=== PATIENT | male | born 1965 | race African-American/Black ===

== ENCOUNTER 2022-11-10 13:33 | Emergency (ER) | payer OTHER ==
[~2022-11-10] VITALS: Ht 182.9 cm; Wt 105.0 kg
[2022-11-10] MEDS ORDERED: BACITRACIN ZINC OINT UDPKT TOP ONE ×2 (14:15→17:15)
[2022-11-10] MEDS ORDERED: LIDOCAINE HCL/PF 1% 10 MG/ML 5ML VIAL INFIL ONE (14:15)
[2022-11-10] MEDS ORDERED: TETANUS, DIPHTHERIA, PERTUSSIS VAC/PF 0.5ML (>10YR OLD) IM ONE (14:15)
[2022-11-10 14:31] VITALS: O2SAT 100
[2022-11-10] MEDS ORDERED: MUPI1OIN4 TP (15:11)
[2022-11-10] MEDS ORDERED: CEPH500C2 MT (15:11)
[2022-11-10] MEDS ORDERED: TRANEXAMIC ACID 1,000 MG/10 ML IV ONE (15:30)
[2022-11-10] MEDS ORDERED: HYDROCODONE/ACETAMINOPHEN 5/325MG TABLET PO PRN (16:15)
[2022-11-10 17:32] VITALS: BP 159/98; PULSE 74; RESP 18; TEMP 98.7
== END 2022-11-10 18:33 | disposition home or self-care (01) ==
LOC: ER 13:33
DX: S61.011A Laceration without foreign body of right thumb without damage to nail, initial encounter (principal); X58.XXXA Exposure to other specified factors, initial encounter; Y93.89 Activity, other specified; Y92.89 Other specified places as the place of occurrence of the external cause; Y99.8 Other external cause status
CPT/HCPCS: 99283; 90715; 12005; 90471; J3490